=== PATIENT | male | born 1950 | race Caucasian/White ===

== ENCOUNTER 2020-12-18 11:40 | Emergency (ER) | payer OTHER ==
[~2020-12-18 11:40] MED LIST: ACETIC ACID 01000 ML IR; ALBUTEROL2.5 MG/3 M INH; ALMACONE LIQUI355 ML PO; BISCOLAX10 MG PR; CELEXA10 MG PO; CEROVITE SENIO1 EACH PO; CLARITIN10 MG PO; COLACE 100MG C100 MG PO; COREG 25MG TAB25 MG PO; COUMADIN 1MG TAB1 MG PO; DITROPAN 5 MG TA5 MG PO; ECOTRIN81 MG PO; ENULOSE10 GM/15 M PO; LATANOPROST 0.7.5 ML OU; LEVEMIR100 UNIT/1 SQ; LINZESS145 MCG PO; LIPITOR40 MG PO; LIQUITEARS15 ML OU; MAGNESIUM OXID400 M2 PO; MIRALAX17 GM PO; NOVOLOG100 UNIT/1 SQ; OZEMPIC0.25 MG/0. SQ; PROBIOTIC1 EAC1 PO; PROTONIX40 MG PO; ROCEPHIN 1 GM AD1 GM IV; SODIUM CHLORI IR; SYNTHROID200 MCG PO; TYLENOL 500 MG500 MG PO; WELLBUTRIN XL300 M1 PO; ZESTRIL2.5 MG PO; ZINC OXIDE OINT30 GM EXT
[2020-12-18 13:10] LABS: HEMOGLOBIN 10.6 gm/dl (14.0-17.5); RED BLOOD COUNT 3.95 M/UL (4.20-5.50); WHITE BLOOD COUNT 8.8 K/UL (4.5-11.0)
[2020-12-18] MEDS ORDERED: ZITHROMAX250 MG PO (17:06)
== END 2020-12-18 22:55 | disposition home or self-care (01) ==
LOC: ER1 11:40
PROVIDERS: Physician Assistant Medical
DX: J44.1 Chronic obstructive pulmonary disease with (acute) exacerbation (principal); J20.9 Acute bronchitis, unspecified; J44.0 Chronic obstructive pulmonary disease with (acute) lower respiratory infection; E78.5 Hyperlipidemia, unspecified; I12.9 Hypertensive chronic kidney disease with stage 1 through stage 4 chronic kidney disease, or unspecified chronic kidney disease; E11.22 Type 2 diabetes mellitus with diabetic chronic kidney disease; N18.9 Chronic kidney disease, unspecified; K21.9 Gastro-esophageal reflux disease without esophagitis; Z87.891 Personal history of nicotine dependence; Z88.2 Allergy status to sulfonamides; Z88.1 Allergy status to other antibiotic agents
CPT/HCPCS: 36600; 80053; 82550; 82553; 82803; 83605; 83874; 84484; 85025; 85610; 87040; 93005; 94664; 99285; J7050; Q9967

== ENCOUNTER 2021-02-23 23:30 | Emergency (ER) | payer OTHER ==
[~2021-02-23 23:30] MED LIST changes: +ZITHROMAX250 MG PO
[2021-02-24 00:51] LABS: HEMOGLOBIN 10.8 gm/dl (14.0-17.5); RED BLOOD COUNT 4.02 M/UL (4.20-5.50)
[2021-02-24 01:44] LABS: BUN/CREATININE RATIO 27 (0-10)
== END 2021-02-24 08:30 | disposition home or self-care (01) ==
LOC: ER1 23:30
PROVIDERS: Family Medicine
DX: J98.09 Other diseases of bronchus, not elsewhere classified (principal); E11.9 Type 2 diabetes mellitus without complications; K80.80 Other cholelithiasis without obstruction
CPT/HCPCS: 71045; 80053; 82550; 82553; 84484; 85025; 85379; 85610; 85730; 99284; Q9967

== ENCOUNTER 2021-03-19 08:27 | Emergency (ER) | payer OTHER ==
[2021-03-19 09:41] LABS: RED BLOOD COUNT 4.08 M/UL (4.20-5.50); WHITE BLOOD COUNT 8.7 K/UL (4.5-11.0)
[2021-03-19 10:04] LABS: BUN/CREATININE RATIO 29 (0-10)
== END 2021-03-19 16:12 | disposition home or self-care (01) ==
LOC: ER1 08:27
PROVIDERS: Student in an Organized Health Care Education/Training Program
DX: R04.2 Hemoptysis (principal); E11.9 Type 2 diabetes mellitus without complications; E78.5 Hyperlipidemia, unspecified; J44.9 Chronic obstructive pulmonary disease, unspecified; I10 Essential (primary) hypertension; Z86.73 Personal history of transient ischemic attack (TIA), and cerebral infarction without residual deficits
CPT/HCPCS: 71045; 80053; 82550; 82553; 83874; 84484; 85025; 85379; 85610; 99285; Q9967